=== PATIENT | male | born 1990 | race Hispanic/Latino ===

== ENCOUNTER 2017-08-26 19:53 | Emergency (ER) | payer OTHER ==
[2017-08-26 20:06] VITALS: BP 112/76; PULSE 89; RESP 16; TEMP 100; O2SAT 100
[2017-08-26] MEDS ORDERED: Sodium Chloride 0.9% 1,000 ML IV STA (20:26)
[2017-08-26] MEDS ORDERED: Dexamethasone 4 mg/1 ml IVP STA (20:26)
[2017-08-26 20:51] LABS: BASO % 0.3 % (0.0-2.0); HEMOGLOBIN 15.6 g/dL (12.0-18.0); LYMPH # 1.2 K/uL (1.0-4.3); LYMPH % 11.4 % (20.0-40.0); MEAN CELL VOLUME 88.1 fl (80.0-94.0); MEAN CORPUSCULAR HEMOGLOBIN 29.6 pg (27.0-31.0); MEAN CORPUSCULAR HGB CONC 33.6 g/dL (33.0-37.0); MEAN PLATELET VOLUME 7.1 fl (7.2-11.7); NEUT # 7.1 K/uL (1.8-7.0); NEUT % 69.3 % (50.0-75.0); NRBC % 0.5 % (0.0-0.0); RBC 5.26 Mil/uL (4.40-5.90); RED CELL DISTRIBUTION WIDTH 12.1 % (11.5-14.5); WHITE BLOOD COUNT 10.3 K/uL (4.8-10.8)
--- NOTE | 2017-08-26 21:08 | ED PDOC ---
HPI: CCC, URI, Sore Throat Time Seen by Provider: 08/26/17 20:09 Chief Complaint (Nursing): Flu-like Symptoms Chief Complaint (Provider): Sore throat History Per: Patient History/Exam Limitations: no limitations Have you had recent travel within the past 21 days to any of the following countries: [place], [place], [place] or [place]?: No Onset/Duration Of Symptoms: Days (x3), Worse Since (onset) Current Symptoms Are (Timing): Still Present Location Of Pain: Throat Sick Contacts (Context): None Associated Symptoms: Fever, Chills, Sore Throat, Cough (dry), Vomiting (x2, non bilious non bloody), Other (loss of appetite). denies: Diarrhea Ear Symptoms: Bilateral: None Pain Scale Rating Of: 7 Additional Complaint(s): Elijah Meneses is a 27 year old male, with no past medical history, who presents to the emergency department complaining of a worsening sore throat associated with subjective fever, and chills, minimal post nasal drip and dry cough onset for x3 days. Patient reports pain with talking and swallowing and states pain has been worsening since onset. He took mucinex, ibuprofen, and tylenol with mild relief. He was seen by urgent care and was given amoxicillin but patient states he feels like she is getting worst. He reports x2 episodes of non bilious, non bloody vomiting yesterday, and complete loss of appetite today. He denies any diarrhea, stomach pain, rash or swelling. No further medical complaints. PMD: None provided. Past Medical History Reviewed: Historical Data, Nursing Documentation, Vital Signs Vital Signs: Last Vital Signs Temp 100 F H 08/26/17 20:01 Pulse 89 08/26/17 20:01 Resp 16 08/26/17 20:01 BP 112/76 08/26/17 20:01 Pulse Ox 100 08/26/17 21:58 - Medical History PMH: No Chronic Diseases - Surgical History Surgical History: No Surg Hx - Family History Family History: States: Unknown Family Hx - Social History Current smoker - smoking cessation education provided: No Alcohol: Social Drugs: Cannabis - Home Medications Home Medications: Ambulatory Orders Medication Instructions Recorded Prednisone 50 mg PO DAILY #4 tablet 08/26/17 - Allergies Allergies/Adverse Reactions: Allergies Allergy/AdvReac Type Severity Reaction Status Date / Time No Known Allergies Allergy Verified 08/26/17 20:00 Review of Systems ROS Statement: Except As Marked, All Systems Reviewed And Found Negative (and as per HPI) Constitutional: Positive for: Fever (subjective), Chills (subjective) ENT: Positive for: Throat Pain (with talking and swallowing), Other (minimal post nasal drip) Respiratory: Positive for: Cough (dry) Gastrointestinal: Positive for: Vomiting (x2, non bilious non bloody). Negative for: Abdominal Pain, Diarrhea Musculoskeletal: Negative for: Other (swelling) Skin: Negative for: Rash Physical Exam - Reviewed Nursing Documentation Reviewed: Yes Vital Signs Reviewed: Yes - Physical Exam Appears: Positive for: Non-toxic, In Acute Distress Head Exam: Positive for: ATRAUMATIC, NORMOCEPHALIC Skin: Positive for: Warm, Diaphoresis Eye Exam: Positive for: EOMI, PERRL ENT: Positive for: Pharyngeal Erythema, Tonsillar Exudate, Tonsillar Swelling Neck: Positive for: Painless ROM, Supple Cardiovascular/Chest: Positive for: Regular Rate, Rhythm, Chest Non Tender. Negative for: Murmur Respiratory: Positive for: Normal Breath Sounds. Negative for: Wheezing, Respiratory Distress Gastrointestinal/Abdominal: Positive for: Soft. Negative for: Tenderness Back: Positive for: Normal Inspection. Negative for: Decreased ROM Extremity: Positive for: Normal ROM. Negative for: Deformity Lymphatic: Positive for: Adenopathy (bilateral submandibular) Neurologic/Psych: Positive for: Alert. Negative for: Motor/Sensory Deficits - Laboratory Results Result Diagrams: 08/26/17 20:45 08/26/17 20:45 - ECG O2 Sat by Pulse Oximetry: 100 (RA) Pulse Ox Interpretation: Normal Medical Decision Making Medical Decision Making: Initial Impression: tonsillitis, and dehydration Initial Plan: --Comp Metabolic Panel --Creatine Phosphokinase --Lact Acid, Plasma --Magnesium --Phosphorus --Urine dipstick --Dextrose 1,000 ml IV 100 mls/hr --Decadron Inj 10 mg IVP --Pepcid 20 mg IVP --NS IV 1,000 ml @ 1,000 mls/hr --Zofran Inj 4 mg IVP --Blood culture --Urine culture --Infectious mononucleosis --Influenza A B --Rapid Strep Group A Antigen --reevaluation cbc with normal wbc but monocytic shift chem with mild hepatitis serology normal US ordered for further evaluation dw pt and family findings. mother present and now reports pt has had h/o mono in the past. EXAM: CT Head Without Intravenous Contrast CLINICAL HISTORY: 67 years old, male; Signs and symptoms; Syncope and collapse TECHNIQUE: Axial computed tomography images of the head/brain without intravenous contrast. All CT scans at this facility use one or more dose reduction techniques, viz.: automated exposure control; ma/kV adjustment per patient size (including targeted exams where dose is matched to indication; i.e. head); or iterative reconstruction technique. Coronal and sagittal reformatted images were created and reviewed. COMPARISON: CT - HEAD W/O CONTRAST 2017-01-31 19:55 FINDINGS: Brain: Diffuse prominence of the sulci and ventricular system consistent with atrophy. Hypodensity throughout the white matter consistent with chronic small vessel disease. Old right basal ganglia lacunar infarct. No mass, mass effect, or midline shift. No hemorrhage. Ventricles: No hydrocephalus. Bones/joints: Unremarkable. No acute fracture. Soft tissues: Unremarkable. Sinuses: Diffuse mucosal thickening right maxillary sinus. Mucosal thickening right sphenoid sinus. Opacification left sphenoid sinus. Sinus surgery. Correlate with history. Mastoid air cells: Partial opacification right mastoid air cells. No mastoid effusion. IMPRESSION: No acute intracranial abnormality. Thank you for allowing us to participate in the care of your patient. Dictated and Authenticated by: Casper Morales MD 08/26/2017 10:27 PM Eastern Time ([place] & Sandra DW pt and family findings. Concern for EBV infection given concomitant tonsillitis with hepatitis. Viral tests ordered and advised rest, avoidance of alcohol and acetaminophen, and f/u pmd and infectious disease specialist. All concerns addressed and questions answered. Scribe Attestation: Documented by Johnson Dhillon, acting as a scribe for Nga Angelo MD Provider Scribe Attestation: All medical record entries made by the Scribe were at my direction and personally dictated by me. I have reviewed the chart and agree that the record accurately reflects my personal performance of the history, physical exam, medical decision making, and the department course for this patient. I have also personally directed, reviewed, and agree with the discharge instructions and disposition. Disposition - Clinical Impression Clinical Impression: Tonsillitis, Hepatitis Counseled Patient/Family Regarding: Studies Performed, Diagnosis, Need For Followup, Rx Given - Disposition Referrals: Natalya Abreu MD [Staff Provider] - [facility] [Outside] (CALL THE [facility] FOR ASSISTANCE SCHEDULING FOLLOW UP APPOINTMENTS.) [facility] [Outside] Disposition Time: 22:30 Condition: IMPROVED Additional Instructions: YOUR VIRAL TESTS FOR JULIAN ESPINOZA AND YOUR CULTURES WILL TAKE SEVERAL DAYS TO COMPLETE. YOU WILL BE CALLED IF ABNORMAL. PLEASE CALL PRIMARY CARE PHYSICIAN AND INFECTIOUS DISEASE SPECIALIST TOMORROW TO SETUP FOLLOW UP APPOINTMENT WITHIN A WEEK TAKE MEDICATION PRESCRIBED. YOU CAN CONTINUE TAKING AMOXICILLIN PRESCRIBED WELL. REST AND DRINK PLENTY OF HYDRATING FLUIDS RETURN TO ER FOR WORSENING SYMPTOMS Prescriptions: Prednisone 50 mg PO DAILY #4 tablet Instructions: Tonsillitis (ED), Mononucleosis (ED) Forms: [employer] ([place])
[2017-08-26 21:12] LABS: ALBUMIN 4.5 g/dL (3.5-5.0); BLOOD UREA NITROGEN 13 mg/dl (9-20); CALCIUM 9.5 mg/dL (8.4-10.2); GFR AFRICAN-AMERICAN > 60; GFR NON-AFRICAN AMERICAN > 60
[2017-08-26 21:13] LABS: ALB/GLOB RATIO 1.2 (1.0-2.1); ALT/SGPT 204 U/L (21-72); AST/SGOT 108 U/L (17-59)
[2017-08-26] MEDS ORDERED: Potassium & Sodium Phosphate PO STA (21:45)
--- NOTE | 2017-08-27 08:08 | US ---
HISTORY: elevated LFTs COMPARISON: None. TECHNIQUE: Sonographic evaluation of the right upper quadrant of the abdomen. FINDINGS: LIVER: Measures 15.0 cm in length. Patent portal vein. Portal venous flow: Hepatopetal. Unremarkeable echogenicity of the liver parenchyma. No mass. No intrahepatic bile duct dilatation. GALLBLADDER: Unremarkable. No gallstones. COMMON BILE DUCT: Measures 2.8 mm. No stones. No dilatation. PANCREAS: Unremarkable as visualized. No mass. No ductal dilatation. RIGHT KIDNEY: Measures 3.9 x 11.5 cm in length. Normal echogenicity. No calculus, mass, or hydronephrosis. AORTA: No aneurysmal dilatation. IVC: Unremarkable. OTHER FINDINGS: None . IMPRESSION: No significant or acute findings to account for/ related to the clinical presentation. Concordant results (preliminary interpretation) provided by [facility]. Procedure Completed: 21:36 Preliminary ([facility]) Report: Dictated and Authenticated: 22:03 Final Interpretation: 08:05
== END 2017-08-26 22:50 | disposition home or self-care (01) ==
LOC: H.ER 19:53
DX: J03.90 Acute tonsillitis, unspecified (principal); E86.0 Dehydration; R11.10 Vomiting, unspecified
CPT/HCPCS: 76705; 80053; 82550; 83605; 83735; 84100; 85025; 86308; 86665; 87040; 87070; 87086; 87430; 87804; 96374; 96375; 99283; J1100; J2405; J7040; J7042